=== PATIENT | female | born 1975 | race Caucasian/White ===

== ENCOUNTER 2017-01-19 19:28 | Emergency (ER) | payer MEDICAID ==
[~2017-01-19] VITALS: Ht 157.5 cm; Wt 70.5 kg
[2017-01-19 19:51] VITALS: Ht 157.5 cm; Wt 70.5 kg
[2017-01-19] MEDS ORDERED: ACYC5CRE7 TOP (21:03)
[2017-01-19] MEDS ORDERED: PRED20TA PO (21:03)
[2017-01-19] MEDS ORDERED: ACYC800T57 PO (21:03)
--- NOTE | 2017-01-19 21:16 | ERD ---
ER Documentation Chief Complaint Date/Time DATE: 01/19/17 TIME: 21:[address] x1 wk and rash x4 days. Back pain right side 4 days HPI 41-year-old female presents to ED with chief complaint of burning itchy rash on bilateral hands, around lips and and genital area. She has had symptoms for 4 days. She recalls a similar attack 15 years ago, was given a prescription she does not remove the name of which resolved symptoms. She reports being under more stress than usual lately. No close contacts with similar symptoms. She denies use of any medications or household products. She has not tried any medications for relief of her symptoms. ROS All systems reviewed and are negative except as per history of present illness. Medications Home Meds Active Scripts Acyclovir* (Zovirax* Crm) 5%-5 Gm Cream.gm., 1 APPLIC TOP 5 TIMES DAILY, #1 TUB Prov:Marianne Lott PA-C 01/19/17 Prednisone* (Prednisone*) 20 Mg Tab, 40 MG PO DAILY for 4 Days, #8 TAB Prov:Marianne Lott PA-C 01/19/17 Acyclovir* (Zovirax*) 800 Mg Tablet, 800 MG PO 5 TIMES DAILY for 7 Days, #35 TAB Prov:Marianne Lott PA-C 01/19/17 Allergies Allergies: Coded Allergies: No Known Allergy (Unverified , 01/19/17) PMhx/Soc Medical and Surgical Hx: pt denies Medical Hx History of Surgery: Yes (CSECTION X1) Hx Alcohol Use: No Hx Substance Use: No Hx Tobacco Use: No Smoking Status: Never smoker Physical Exam Vitals Vital Signs Date Time Temp Pulse Resp B/P Pulse Ox O2 Delivery O2 Flow Rate FiO2 01/19/17 19:51 97.7 69 18 136/74 100 Physical Exam GENERAL: Non-toxic. No apparent signs of distress. HEENT: Atraumatic. Bilateral eyes are PERRL EOM intact. Normal conjunctiva, no injection. No eyelid or lower eyelid swelling noted. Ears: Normal tympanic membrane, no erythema or bulging. No ear canal swelling. No ear discharge. Nose : no nasal discharge. Throat: Oropharynx normal. Tongue pink and moist. No tonsillar swelling or tonsillar exudates. No lymphadenopathy. LUNGS: Clear to auscultation. No accessory muscle use. No wheezing, no crackles. No signs or symptoms of respiratory distress. HEART: Regular rate and rhythm. No murmurs, clicks, rubs or gallops. NEURO: Cranial nerves are grossly intact. Normal mental status for age. Good muscle tone. SKIN: Annular erythematous vesicular lesions over bilateral palms. Erythematous vesicular lesions over upper and lower lip across vermilion border. No edema, no active discharge or bleeding .Good skin turgor. Procedures/MDM Patient appears to be in no acute distress, on examination she has several vesicular erythematous lesions on upper and lower lip and bilateral palms. She describes pain as burning in nature. She reports increasing stress recently. She denies close contacts having similar symptoms. She denies use of any medications or household products. She had a similar outbreak 15 years ago which resolved after use of medication which she does not recall the name of. Explained to the patient that symptoms are likely due to herpes simplex virus, lesion on palm may be due to shingles. I prescribed both acyclovir PO and topical as well as prednisone for relief of symptoms. Patient has stable vital signs. I have low suspicion for cellulitis, atopic dermatitis, syphilis, and tinea. Patient stable for discharge and outpatient management. Advised to follow-up with PCP in 1-2 days. Departure Diagnosis: Primary Impression: Shingles rash Herpes zoster complications: without complications Qualified Code: B02.9 - Herpes zoster without complication Additional Impression: Herpes simplex Condition: Good Patient Instructions: Herpes: Caring for Sores, Shingles (Herpes Zoster) [facility] Usted se rice hecho un examen mdico de control que le indica que no est en omar condicin que requiera tratamiento urgente en el Departamento de Emergencia. Un estudio ms profundo y el tratamiento de brown condicin pueden esperar sin ningn riesgo hasta que usted sea atendida/o en el consultorio de brown mdico o omar cl rakan. Es responsabilidad suya arreglar omar sis para el seguimiento del hortensia. MANEJO DE CONDICIONES NO URGENTES EN EL FUTURO 1) Si usted tiene un mdico de atencin primaria: Usted debera llamar a brown mdico de atencin primaria antes de venir al departamento de emergencia. Despus de las horas de consultorio, brown doctor o brown asociado/a est disponible por telfono. El mdico o enfermero de jose f en el servicio telefnico puede asesorarle por valerie medio para atender el problema, o hortensia contrario se puede programar omar sis. 2) Si usted no tiene un mdico de atencin primaria: Llame al mdico o clnica de referencia que aparece abajo dorie las horas de consultorio para hacer omar sis para que le vean. CLINICAS: [place] [id number] [phone] [facility] [phone] [place] [address] [phone] [facility] [place] [address] [phone] [facility] [place] [address] [phone] [facility] [phone] [address] Additional Instructions: Llame al doctor MAANA y courtney omar SIS PARA DENTRO DE 1-2 MONGE.Dgale a la secretaria que nosotros le instruimos hacer esta sis.Avise o llame si brown condicin se empeora antes de la sis. Regresa aqui si peor o no mejor. Marianne Lott PA-C Jan 19, 2017 21:16
[2017-01-19 21:38] VITALS: BP 128/78; PULSE 72; RESP 18; TEMP 98
== END 2017-01-19 21:40 | disposition home or self-care (01) ==
LOC: FTE 19:28
DX: B02.9 Zoster without complications (principal); B00.9 Herpesviral infection, unspecified
CPT/HCPCS: 99284

== ENCOUNTER 2017-04-08 15:22 | Emergency (ER) | payer MEDICAID ==
[~2017-04-08] VITALS: Wt 72.5 kg
[~2017-04-08 15:22] MED LIST: ACYC5CRE7 TOP; ACYC800T57 PO; PRED20TA PO
--- NOTE | 2017-04-08 16:04 | ERD ---
ER Documentation Chief Complaint Date/Time DATE: 04/08/17 TIME: 16:02 Chief Complaint SOB, ONSET 2 DAYS, COUGH HPI 41-year-old female who presents to the emergency room with multiple complaints for approximately 3 months. She describes shortness of breath and chest pressure occasionally reading to her arm. Occasionally this is exertional but frequently it is not related to any exertion. She does note increased social stressors recently over this timeframe. She denies any fevers or chills, no pleuritic pain, she noted cough at triage but denies cough currently. No leg swelling. No family history of early cardiac disease she is a non-smoker. ROS All systems reviewed and are negative except as per history of present illness. Medications Home Meds Active Scripts Acyclovir* (Zovirax* Crm) 5%-5 Gm Cream.gm., 1 APPLIC TOP 5 TIMES DAILY, #1 TUB Prov:Marianne Lott PA-C 01/19/17 Prednisone* (Prednisone*) 20 Mg Tab, 40 MG PO DAILY for 4 Days, #8 TAB Prov:Marianne Lott PA-C 01/19/17 Acyclovir* (Zovirax*) 800 Mg Tablet, 800 MG PO 5 TIMES DAILY for 7 Days, #35 TAB Prov:Marianne Lott PA-C 01/19/17 Allergies Allergies: Coded Allergies: No Known Allergy (Unverified , 01/19/17) PMhx/Soc History of Surgery: Yes (CSECTION X1) Anesthesia Reaction: No Hx Neurological Disorder: No Hx Respiratory Disorders: No Hx Cardiac Disorders: No Hx Psychiatric Problems: No Hx Miscellaneous Medical Probl: No Hx Alcohol Use: No Hx Substance Use: No Hx Tobacco Use: No Smoking Status: Never smoker FmHx Family History: No coronary disease, No diabetes Physical Exam Vitals Vital Signs Date Time Temp Pulse Resp B/P Pulse Ox O2 Delivery O2 Flow Rate FiO2 04/08/17 15:26 97.5 86 17 120/60 98 Physical Exam General: Well developed, well nourished, no acute distress Head: Normocephalic, atraumatic. Eyes: Pupils equally reactive, EOM intact ENT: Moist mucous membranes Neck: Supple, no lymphadenopathy Respiratory: Lungs clear bilaterally, no distress Cardiovascular: RRR, no murmurs, rubs, or gallops Abdominal: Soft, non-tender, non-distended, no peritoneal signs : Deferred MSK: No edema, no unilateral swelling, 5/5 strength Neurologic: Alert and oriented, moving all extremities, normal speech, no focal weakness, no cerebellar signs Skin: No rash Psych: Normal mood Result Diagram: 04/08/17 1609 04/08/17 1609 Results 24 hrs Laboratory Tests Test 04/08/17 16:09 White Blood Count 7.110^3/ul Red Blood Count 4.2810^6/ul Hemoglobin 12.7g/dl Hematocrit 37.2% Mean Corpuscular Volume 86.9fl Mean Corpuscular Hemoglobin 29.7pg Mean Corpuscular Hemoglobin Concent 34.1g/dl Red Cell Distribution Width 12.9% Platelet Count 71617^3/UL Mean Platelet Volume 10.4fl Neutrophils % 63.5% Lymphocytes % 25.8% Monocytes % 7.0% Eosinophils % 3.0% Basophils % 0.6% Nucleated Red Blood Cells % 0.0/100WBC Neutrophils # 4.510^3/ul Lymphocytes # 1.810^3/ul Monocytes # 0.510^3/ul Eosinophils # 0.210^3/ul Basophils # 0.010^3/ul Nucleated Red Blood Cells # 0.010^3/ul Prothrombin Time 11.9Sec Prothrombin Time Ratio 0.9 INR International Normalized Ratio 0.88 Activated Partial Thromboplast Time 25.0Sec Sodium Level 142mmol/L Potassium Level 3.6mmol/L Chloride Level 108mmol/L Carbon Dioxide Level 28mmol/L Anion Gap 10 Blood Urea Nitrogen 5mg/dl Creatinine 0.53mg/dl Glucose Level 102mg/dl Calcium Level 8.7mg/dl Troponin I < 0.012ng/ml Serum HCG, Qualitative NEGATIVE Current Medications Medications (Trade) Dose Ordered Sig/Annamarie Route PRN Reason Start Time Stop Time Status Last Admin Dose Admin Ibuprofen (Motrin) 800 mg ONCE ONCE PO 04/08/17 16:30 04/08/17 16:31 DC 04/08/17 16:25 Procedures/MDM EKG, MONITORS, & DIAGNOSTIC IMAGING: EKG: I reviewed and interpreted a 12-lead EKG. Rhythm: Normal sinus rhythm Ectopy: None Intervals: No abnormalities ST segments: No elevations or depressions T waves: No contiguous inversions Chest x-ray: I reviewed and interpreted a 1 view of the chest Mediastinum: No enlargement Cardiac silhouette: No cardiomegaly Airspace: Clear lung urbano bilaterally without evidence of pneumothorax Bones: No evidence of fracture LAB INTERPRETATION: Negative troponin MEDICAL DECISION MAKING: The patient's history, physical exam and clinical presentation not consistent with cardiac etiology. The patient occasionally has exertional symptoms but frequently her symptoms are not related to any exertion. She has no evidence of pulmonary embolism. She has no family history of early cardiac disease and has no significant risk factors for early cardiac disease. She has 3 months of constant symptoms. She does have social stressors raising the concern for anxiety or stress causing her symptoms. However, the patient is a 41-year-old female in atypical presentation of cardiac etiology may be present. I believe that an EKG and troponin would be reasonable given 3 months of constant symptoms I do not believe that the patient requires serial enzymes though I discussed serial troponins with her. The patient has a primary care clinic and outpatient follow-up would be reasonable if negative workup in the emergency room. Based on the patient's clinical exam and history and risk factors, I have a much lower clinical concern for pulmonary embolism, acute aortic dissection, pneumothorax, pneumonia, cardiac tamponade The patient meets the PERC RULE out criteria. Thus, less than 2% risk of pulmonary embolism with better alternative diagnosis. No indication for d- dimer or CT pulmonary angiogram at this time. HEART Score: 0 MACE Rate: Less than 1.7% and likely less than 0.9% Shared Decision Making: We had a conversation regarding risk stratification, MACE rate, and the risks, benefits, alternatives of disposition planning options. Disposition planning: We discussed the risks, benefits, alternatives of inpatient versus outpatient management. Given the patient's extremely low risk profile, 3 months of constant symptoms and atypical probation outpatient management would be appropriate with an EKG and troponin here in the emergency room. ER COURSE: The patient continues to be well-appearing, she has for some Motrin for mild headache. The patient's laboratory testing and diagnostic imaging is unrevealing. At this time I feel outpatient management is appropriate given reasoning above. The patient was advised to follow with primary care physician. Return for any exertional symptoms or worsening symptoms. I kept the patient and/or family informed of laboratory and diagnostic imaging results throughout the emergency room course. DISPOSITION PLAN: We discussed follow up with the patient's primary care doctor within 24 to 48 hours as needed. We also discussed return to the emergency room for worsening symptoms or worsening condition. Outpatient referral: [None required] Departure Diagnosis: Primary Impression: Atypical chest pain Condition: ALINA Bhatia MD Apr 08, 2017 16:04
--- NOTE | 2017-04-08 16:12 | RADRPT ---
PROCEDURE: XR Chest. CLINICAL INDICATION: Chest Pain. Shortness of breath TECHNIQUE: Single frontal chest x-ray. COMPARISON: None. FINDINGS: The lungs are clear of acute infiltrates, edema, effusions, or masses.. The cardiomediastinal silho uette is unremarkable. The osseous structures are intact. IMPRESSION: No acute cardiopulmonary disease. RPTAT: QQ .Star Louis MD, Date Time Electronically viewed and signed by .Star Louis MD, on 04/08/2017 16:12 .L/
[2017-04-08 16:23] LABS: ADD SCAN DIFF NO
[2017-04-08 16:27] LABS: BASOPHILS % 0.6 % (0.0-2.0); EOSINOPHILS # 0.2 10^3/ul (0.0-0.5); HEMATOCRIT 37.2 % (37.0-47.0); HEMOGLOBIN 12.7 g/dl (12.0-16.0); LYMPHOCYTES # 1.8 10^3/ul (0.8-2.9); LYMPHOCYTES % 25.8 % (15.0-51.0); MEAN CORPUSCULAR HEMOGLOBIN 29.7 pg (29.0-33.0); MEAN CORPUSCULAR HGB CONC 34.1 g/dl (32.0-37.0); MEAN CORPUSCULAR VOLUME 86.9 fl (82.0-101.0); MEAN PLATELET VOLUME 10.4 fl (7.4-10.4); MONOCYTE # 0.5 10^3/ul (0.3-0.9); NEUTROPHIL # 4.5 10^3/ul (1.6-7.5); NEUTROPHILS % 63.5 % (39.0-77.0); PLATELET COUNT 265 10^3/UL (140-415); RED BLOOD COUNT 4.28 10^6/ul (4.20-5.40); RED CELL DISTRIBUTION WIDTH 12.9 % (11.5-14.5); WHITE BLOOD COUNT 7.1 10^3/ul (4.8-10.8)
[2017-04-08] MEDS ORDERED: IBUPROFEN 800 MG TAB PO ONE (16:30)
[2017-04-08 16:44] LABS: INR 0.88; PROTIME 11.9 Sec (12.2-14.2); PT RATIO 0.9
[2017-04-08 16:48] LABS: ANION GAP 10 (8-16); BLOOD UREA NITROGEN 5 mg/dl (7-20); CALCIUM 8.7 mg/dl (8.4-10.2); CARBON DIOXIDE 28 mmol/L (21-31); CHLORIDE 108 mmol/L (97-110); CREATININE 0.53 mg/dl (0.44-1.00); GLUCOSE 102 mg/dl (70-220); POTASSIUM 3.6 mmol/L (3.5-5.1); SODIUM 142 mmol/L (135-144)
[2017-04-08 17:00] LABS: TROPONIN-I < 0.012 ng/ml (0.00-0.12)
[2017-04-08 17:58] VITALS: BP 126/72; PULSE 66; RESP 18
== END 2017-04-08 17:59 | disposition home or self-care (01) ==
LOC: FTE 15:22
DX: R07.89 Other chest pain (principal)
CPT/HCPCS: 36415; 71010; 80048; 84484; 84703; 85025; 85610; 85730; 93005; Z7502; Z7610

== ENCOUNTER 2018-02-12 14:59 | Emergency (ER) | END 2018-02-12 18:05 | disposition home or self-care (01) ==

== ENCOUNTER 2018-06-21 07:45 | Day surgery (SDC) | END 2018-06-21 17:14 | disposition home or self-care (01) ==

== ENCOUNTER 2018-06-27 04:39 | Emergency (ER) | END 2018-06-27 07:13 | disposition home or self-care (01) ==

== ENCOUNTER 2018-07-19 09:17 | Day surgery (SDC) | END 2018-07-19 16:15 | disposition home or self-care (01) ==

== ENCOUNTER 2018-10-18 08:58 | Day surgery (SDC) | END 2018-10-18 15:27 | disposition home or self-care (01) ==